=== PATIENT | male | born 1970 | race Caucasian/White ===

== ENCOUNTER 2020-03-03 20:07 | Emergency (ER) | payer OTHER ==
[~2020-03-03] VITALS: Ht 177.8 cm; Wt 70.0 kg
[2020-03-03 20:10] VITALS: BP 131/79
--- NOTE | 2020-03-03 20:46 | NUR ---
Pt was uncooperative. So much so that a stretcher needed to be taken out to the ambulance bay to have him lay on it so his blood could be drawn for the officer. While I was prepping his right arm for the blood draw he looked at my staff and told them "I will kill you." he would look directly into their eyes. He had intent. He then looked at me and said "I will kill you too, you bitch."
== END 2020-03-03 20:54 | disposition home or self-care (01) ==
LOC: ER 20:08
DX: Z02.89 Encounter for other administrative examinations (principal)
CPT/HCPCS: 99283